=== PATIENT | female | born 1930 | race Caucasian/White ===

== ENCOUNTER 2021-11-22 17:55 | Inpatient (IN) ==
[2021-11-22] MEDS ORDERED: LORazepam 0.5 MG TABLET PO ONE (19:07)
[2021-11-22] MEDS ORDERED: IPRATROPIUM/ALBUTEROL 3 ML AMPUL.NEB NEB ONE (19:10)
[2021-11-22] MEDS ORDERED: LORazepam 1 MG TABLET PO ONE (19:10)
[2021-11-22 19:19] LABS: Hematocrit 32.8 % (34.1-44.9); Hemoglobin 12.2 g/dL (11.2-15.7); Mean Corpuscular HGB Conc 37.2 g/dL (31.0-36.0); Mean Platelet Volume 10.9 fL (7.4-10.4); Platelet Count 193 K/mcL (140-440); RBC 3.38 M/mcL (3.59-5.38); Red Cell Distribution Width 11.8 % (11.5-14.5); WBC 8.5 K/mcL (4.5-11.0)
[2021-11-22 19:29] LABS: ALT/SGPT 16 U/L (<40); AST/SGOT 29 U/L (<32); Albumin 3.6 gm/dL (3.2-5.2); Albumin/Globulin Ratio 1.2 (1.0-2.3); Alkaline Phosphatase 69 U/L (39-117); Bilirubin,Total 0.9 mg/dL (0.1-1.0); Blood Urea Nitrogen 10 mg/dL (8-23); Calcium 8.6 mg/dL (8.6-10.4); Carbon Dioxide 26 mmol/L (22-30); Chloride 85 mmol/L (96-108); Globulin 2.9 gm/dL (2.2-3.7); Glomerular Filtration Rate 77; Glucose 189 mg/dL (70-105)
[2021-11-22 19:45] LABS: Band Neutrophils % 11 % (0-10); Eosinophils % (Manual) 1 % (0-7); Lymphocytes % 15 % (15-49); Monocytes % (Manual) 7 % (1-12); Platelet Estimate NORMAL (Normal); RBC Morphology NORMAL (Normal); Segmented Neutrophils % 66 % (38-78)
--- NOTE | 2021-11-22 19:54 | Emergency Department Note ---
HPI <Belem Barboza PA-C - Last Filed: 11/22/21 20:51> General Chief complaint: Shortness of Breath/Dyspnea Stated complaint: SOB/cough x 1 week Time Seen by Provider: 11/22/21 18:17 Source: patient Mode of arrival: wheelchair History of Present Illness HPI Narrative: 89-year-old female presents for weakness and cough x6 days. Her niece is with her at the bedside and gives most of her story as she is quite anxious and not able to focus on my questioning. Apparently she started developing symptoms of cough on Monday and then over the course of a few days has become gradually weaker. She is normally very active and works in her garden and walks her dogs, but she has been unable to leave the house since last Monday. She complains of severe cough that is keeping her awake at night. She denies chest pain. She is having some mild shortness of breath. Oxygen saturations are low 90s here. She is not on inhalers. Previous imaging shows granulomatous disease on CT. no other significant medical history other than hypertension. Echocardiogram in 2019 shows normal LVEF and no hemodynamically significant disease. Related Data Home Medications Medication Instructions Recorded Confirmed aspirin 81 mg chewable tablet 81 mg PO DAILY 08/07/18 06/29/21 brimonidine 0.2 %-timolol 0.5 % 1 drp BOTH EYES Q12H 08/07/18 06/29/21 eye drops calcium carbonate 500 mg calcium 1,200 mg PO DAILY 08/07/18 06/29/21 (1,250 mg) tablet cholecalciferol (vitamin D3) 50 2,000 unit PO DAILY 08/07/18 06/29/21 mcg (2,000 unit) capsule latanoprost (PF) 0.005 % eye drops 7.5 ml OP DAILY 08/07/18 06/29/21 omega-3 fatty acids PO 01/21/21 06/29/21 ascorbic acid (vitamin C) 1 tab PO QDAY 06/29/21 06/29/21 Previous Rx's Medication Instructions Recorded nitroglycerin 0.4 mg sublingual 0.4 mg SUBLINGUAL Q5M PRN #30 tab 11/25/19 tablet denosumab 60 mg/mL subcutaneous 60 mg SUB-Q [id number] #1 ml 05/29/20 syringe (Prolia) amlodipine 10 mg tablet 10 mg PO QDAY #90 tab 03/19/21 Allergies Allergy/AdvReac Type Severity Reaction Status Date / Time Penicillins Allergy Intermediate Swelling Verified 11/22/21 17:57 of Lip/Tongue/Throat Review of Systems <Belem Barboza PA-C - Last Filed: 11/22/21 20:51> ROS ROS Narrative: Narrative: All systems ED: reviewed and negative except as stated. PFSH <Belem Barboza PA-C - Last Filed: 11/22/21 20:51> Narrative Patient History Narrative: Narrative: Medical/Surgical/Family History All Active Problems (Updated 11/22/21 @ 20:43 by Gabe Cortez MD) CAP (community acquired pneumonia) (Acute) Acute hypoxemic respiratory failure (Acute) Toxic metabolic encephalopathy (Acute) Acute hyponatremia (Acute) Weakness (Acute) Acute lower respiratory infection (Acute) Tetanus, diphtheria, and acellular pertussis (Tdap) vaccination declined (Acute 06/29/21) 23-polyvalent pneumococcal polysaccharide vaccine declined (Acute 06/29/21) COVID-19 vaccine series declined (Acute 06/29/21) Influenza vaccination declined (Acute 06/29/21) Osteopenia (Acute) Medicare annual wellness visit, subsequent (Acute) Osteoporosis (Chronic) High cholesterol (Chronic) Hypertension (Chronic) Skin cancer (Chronic) Medical History 23-polyvalent pneumococcal polysaccharide vaccine declined (06/29/21) COVID-19 vaccine series declined (06/29/21) High cholesterol Hypertension Influenza vaccination declined (06/29/21) Medicare annual wellness visit, subsequent Osteoporosis Skin cancer Tetanus, diphtheria, and acellular pertussis (Tdap) vaccination declined (06/29/21) Surgical History History of back surgery x 2 History of neck surgery Family History Family/Other Cancer Grandparent Father Heart attack Social History Smoking Status: Never smoker Alcohol Intake Frequency: does not drink Substance Use: does not use Exam <Belem Barboza PA-C - Last Filed: 11/22/21 20:51> Narrative Narrative: General: AOx3, extremely anxious and try to get out of bed, nontoxic appearing. HEENT: PERRL, EOMI, normocephalic. Moist mucous membranes. Normal facies and normal dentition. Chest: Symmetric, no pain to palpation Respiratory: No expiratory wheezes. She has subtle crackles in the left upper lobe. No respiratory distress. Unlabored breathing. Heart: Regular rate and rhythm, no murmurs/clicks/rubs. Abdomen: Non-tender, Non distended, normal bowel tones. No organomegaly. Extremities: Warm and well perfused. No edema. DP 2+ bilaterally. No venous stasis. Neuro: No focal deficits. Cranial nerves II-XII grossly normal. Moving all fours spontaneously Skin: Warm dry, no rashes or lesions, no cyanosis. Psych: Very anxious Heme/Lymph: No abnormal bruising Course <Belem Barboza PA-C - Last Filed: 11/22/21 20:51> Course Course Narrative: 89-year-old female presents with 6 days of weakness and cough Reevaluation(s) Reevaluation #1: Obtain basic labs, chest x-ray, UA, BNP, D-dimer Give 0.5 mg sublingual Ativan given her high anxiety Obtain COVID and influenza screens Reevaluation #2: Chest x-ray is without infiltrates or pulmonary edema COVID and influenza screens are negative BNP mildly elevated at 1930 D-dimer is negative adjusted for age Hyponatremia 123 Remaining labs are unremarkable without leukocytosis. Vital Signs Vital signs: Vital Signs Temperature 36.3 C 11/22/21 17:57 Pulse Rate 79 11/22/21 17:57 Respiratory Rate 24 H 11/22/21 17:57 Blood Pressure 171/51 11/22/21 17:57 Pulse Oximetry (%) 90 11/22/21 17:57 Temperature 35.8 C L 11/22/21 23:35 Pulse Rate 85 11/22/21 23:35 Respiratory Rate 24 H 11/22/21 23:35 Blood Pressure 163/72 11/22/21 23:35 Pulse Oximetry (%) 94 11/22/21 23:35 [facility] <Belem Barboza PA-C - Last Filed: 11/22/21 20:51> [facility] Narrative Medical decision making narrative: Hyponatremia Weakness Cough Given her sodium of 123 and ongoing weakness the plan will be to discuss admission with the hospitalist. I do not think she is appropriate to discharge home as she lives independently at home. Chest x-ray was without infiltrates and I have not started antibiotics at this time. Awaiting hospitalist for admission. Hospitalist has accepted the patient for observation admission and will be down to see the patient shortly. Lab Data Result diagrams: 11/22/21 18:31 11/22/21 18:31 Labs: Lab Results 11/22/21 11/22/21 11/22/21 Range/Units 18:31 18:31 18:31 WBC 8.5 (4.5-11.0) K/mcL RBC 3.38 L (3.59-5.38) M/mcL Hgb 12.2 (11.2-15.7) g/dL Hct 32.8 L (34.1-44.9) % MCV 97.0 (80.0-100.0) fL MCH 36.1 H (26.0-34.0) pg MCHC 37.2 H (31.0-36.0) g/dL RDW 11.8 (11.5-14.5) % Plt Count 193 (140-440) K/mcL MPV 10.9 H (7.4-10.4) fL Seg Neutrophils % 66 (38-78) % Band Neutrophils % 11 H (0-10) % Lymphocytes % 15 (15-49) % Monocytes % (Manual) 7 (1-12) % Eosinophils % (Manual) 1 (0-7) % Platelet Estimate Normal (Normal) RBC Morphology Normal (Normal) D-Dimer (0.27-0.50) ug/mL Sodium 123 L (133-145) mmol/L Potassium 4.0 (3.3-5.1) mmol/L Chloride 85 L (96-108) mmol/L Carbon Dioxide 26 (22-30) mmol/L Anion Gap 12.0 (8.0-16.0) BUN 10 (8-23) mg/dL Creatinine 0.7 (0.6-1.1) mg/dL GFR Calculation 77 Glucose 189 H (70-105) mg/dL Calcium 8.6 (8.6-10.4) mg/dL Total Bilirubin 0.9 (0.1-1.0) mg/dL AST 29 (<32) U/L ALT 16 (<40) U/L Alkaline Phosphatase 69 (39-117) U/L NT-Pro-B Natriuret Pep 1980.0 H (<450.0) pg/mL Total Protein 6.5 (5.9-8.4) gm/dL Albumin 3.6 (3.2-5.2) gm/dL Globulin 2.9 (2.2-3.7) gm/dL Albumin/Globulin Ratio 1.2 (1.0-2.3) / Range/Units 18:31 WBC (4.5-11.0) K/mcL RBC (3.59-5.38) M/mcL Hgb (11.2-15.7) g/dL Hct (34.1-44.9) % MCV (80.0-100.0) fL MCH (26.0-34.0) pg MCHC (31.0-36.0) g/dL RDW (11.5-14.5) % Plt Count (140-440) K/mcL MPV (7.4-10.4) fL Seg Neutrophils % (38-78) % Band Neutrophils % (0-10) % Lymphocytes % (15-49) % Monocytes % (Manual) (1-12) % Eosinophils % (Manual) (0-7) % Platelet Estimate (Normal) RBC Morphology (Normal) D-Dimer 0.89 H (0.27-0.50) ug/mL Sodium (133-145) mmol/L Potassium (3.3-5.1) mmol/L Chloride (96-108) mmol/L Carbon Dioxide (22-30) mmol/L Anion Gap (8.0-16.0) BUN (8-23) mg/dL Creatinine (0.6-1.1) mg/dL GFR Calculation Glucose (70-105) mg/dL Calcium (8.6-10.4) mg/dL Total Bilirubin (0.1-1.0) mg/dL AST (<32) U/L ALT (<40) U/L Alkaline Phosphatase (39-117) U/L NT-Pro-B Natriuret Pep (<450.0) pg/mL Total Protein (5.9-8.4) gm/dL Albumin (3.2-5.2) gm/dL Globulin (2.2-3.7) gm/dL Albumin/Globulin Ratio (1.0-2.3) ED POC Tests ED POC Tests: XIANG - Influenza A Negative XIANG - Influenza B Negative XIANG - SARS Antigen Negative Discharge Plan Patient/Caregiver Discharge Instructions Pt seen by [employer]ER ASSEMBLER/PA only: Yes Clinical Impression: Acute hyponatremia, Weakness, Acute lower respiratory infection Patient Disposition: Xfer As Outpt/Obs ([facility]) Condition: Fair Discharge Date/Time: 11/22/21 21:42
--- NOTE | 2021-11-22 20:44 | Internal Med History&Physical ---
HPI History of Present Illness Patient information: Note initiated : 11/22/21 at 8:40 pm Service Date, if different from initiated Date: [] Patient: Danielle Duncan a 89 y/o F admitted on for SOB/cough x 1 week. Chief Complaint: [SOB] Chief complaint: ALOC, weakness History of present illness: Ms. Duncan is a 89 year old F with a past medical history significant for hypertension, and glaucoma who presents to the hospital with worsening shortness of breath, and malaise. The patient was quite anxious on arrival, and coughing vigorously. She was found to be hypoxemic and placed on supplemental O2. She was given a dose of Ativan and she was quite sedated when I went to evaluate her. History was obtained secondhand from chart review and from the niece who was present at the bedside. She states that her aunt began to feel unwell last . They would call him to check and and she would state that she is feeling well. Today she decided to come in and check on her when she noticed that she was looking quite unwell. She decided to bring her to the ER for further management and evaluation. On arrival, she was tachypneic and very weak. The hospitalist service was asked admit the patient for further ma nagement evaluation of acute hypoxemic respiratory failure. Review of Systems ROS unobtainable: due to mental status [facility] PF[facility] All Active Problems (Updated 11/22/21 @ 20:43 by Gabe Cortez MD) CAP (community acquired pneumonia) (Acute) Acute hypoxemic respiratory failure (Acute) Toxic metabolic encephalopathy (Acute) Acute hyponatremia (Acute) Weakness (Acute) Acute lower respiratory infection (Acute) Tetanus, diphtheria, and acellular pertussis (Tdap) vaccination declined (Acute 06/29/21) 23-polyvalent pneumococcal polysaccharide vaccine declined (Acute 06/29/21) COVID-19 vaccine series declined (Acute 06/29/21) Influenza vaccination declined (Acute 06/29/21) Osteopenia (Acute) Medicare annual wellness visit, subsequent (Acute) Osteoporosis (Chronic) High cholesterol (Chronic) Hypertension (Chronic) Skin cancer (Chronic) Medical History 23-polyvalent pneumococcal polysaccharide vaccine declined (06/29/21) COVID-19 vaccine series declined (06/29/21) High cholesterol Hypertension Influenza vaccination declined (06/29/21) Medicare annual wellness visit, subsequent Osteoporosis Skin cancer Tetanus, diphtheria, and acellular pertussis (Tdap) vaccination declined (06/29/21) Surgical History History of back surgery x 2 History of neck surgery Family History Family/Other Cancer Grandparent Father Heart attack Social History marital status: smoking status: Never smoker alcohol intake frequency: does not drink substance use type: does not use MEDS/ALLERGIES Home Medications and Allergies Home Medications Medication Instructions Recorded Confirmed Type aspirin 81 mg chewable tablet 81 mg PO DAILY 08/07/18 06/29/21 History brimonidine 0.2 %-timolol 0.5 % 1 drp BOTH EYES Q12H 08/07/18 06/29/21 History eye drops calcium carbonate 500 mg calcium 1,200 mg PO DAILY 08/07/18 06/29/21 History (1,250 mg) tablet cholecalciferol (vitamin D3) 50 2,000 unit PO DAILY 08/07/18 06/29/21 History mcg (2,000 unit) capsule latanoprost (PF) 0.005 % eye drops 7.5 ml OP DAILY 08/07/18 06/29/21 History nitroglycerin 0.4 mg sublingual 0.4 mg SUBLINGUAL Q5M PRN #30 tab 11/25/19 06/29/21 Rx tablet denosumab 60 mg/mL subcutaneous 60 mg SUB-Q [id number] #1 ml 05/29/20 06/29/21 Rx syringe (Prolia) omega-3 fatty acids PO 01/21/21 06/29/21 History amlodipine 10 mg tablet 10 mg PO QDAY #90 tab 03/19/21 06/29/21 Rx ascorbic acid (vitamin C) 1 tab PO QDAY 06/29/21 06/29/21 History Allergies Allergy/AdvReac Type Severity Reaction Status Date / Time Penicillins Allergy Intermediate Swelling Verified 11/22/21 17:57 of Lip/Tongue/Throat EXAM Constitutional Vitals: Temp Pulse Resp BP Pulse Ox 97.3 F 63 28 H 148/55 94 11/22/21 17:57 11/22/21 20:23 11/22/21 20:23 11/22/21 20:02 11/22/21 20:23 General appearance: average body habitus Head Head exam: Present atraumatic, normal inspection and normocephalic Eye Eye exam: Present EOMI, normal appearance and PERRL; Absent conjunctival injection ENT ENT exam: Present mucous membranes dry and normal exam Neck Neck exam: Present full ROM; Absent lymphadenopathy Respiratory Respiratory exam: Present decreased breath sounds, CTAB, rhonchi and wheezes; Absent normal respiratory exam or respiratory distress Cardiovascular Cardiovascular exam: Present normal rate and rhythm and RRR; Absent JVD GI/Abdominal GI/Abdominal exam: Present normal bowel sounds and soft; Absent diminished bowel sounds, distended, guarding, mass, rebound or tenderness Neurological Exam Neurological exam: Present altered; Absent alert, CN II-XII intact or oriented X3 Psychiatric Psychiatric exam: Present normal affect and normal mood Skin Skin exam: Present intact and warm; Absent erythema, pallor, petechiae or rash DATA Data Completed and Pending Labs: Labs from last 24 hours 11/22/21 11/22/21 11/22/21 18:31 18:31 18:31 WBC RBC Hgb Hct MCV MCH MCHC RDW Plt Count MPV Seg Neutrophils % Band Neutrophils % Lymphocytes % Monocytes % (Manual) Eosinophils % (Manual) Platelet Estimate RBC Morphology D-Dimer 0.89 H Sodium 123 L Potassium 4.0 Chloride 85 L Carbon Dioxide 26 Anion Gap 12.0 BUN 10 Creatinine 0.7 GFR Calculation 77 Glucose 189 H Calcium 8.6 Total Bilirubin 0.9 AST 29 ALT 16 Alkaline Phosphatase 69 NT-Pro-B Natriuret Pep 1980.0 H Total Protein 6.5 Albumin 3.6 Globulin 2.9 Albumin/Globulin Ratio 1.2 11/22/21 18:31 WBC 8.5 RBC 3.38 L Hgb 12.2 Hct 32.8 L MCV 97.0 MCH 36.1 H MCHC 37.2 H RDW 11.8 Plt Count 193 MPV 10.9 H Seg Neutrophils % 66 Band Neutrophils % 11 H Lymphocytes % 15 Monocytes % (Manual) 7 Eosinophils % (Manual) 1 Platelet Estimate Normal RBC Morphology Normal D-Dimer Sodium Potassium Chloride Carbon Dioxide Anion Gap BUN Creatinine GFR Calculation Glucose Calcium Total Bilirubin AST ALT Alkaline Phosphatase NT-Pro-B Natriuret Pep Total Protein Albumin Globulin Albumin/Globulin Ratio A/P Assessment and plan (1) Acute hyponatremia: Status: Acute (2) Weakness: Status: Acute (3) Hypertension: Status: Chronic Qualifiers: Hypertension type: essential hypertension Qualified Code(s): I10 - Essential (primary) hypertension (4) High cholesterol: Status: Chronic (5) Toxic metabolic encephalopathy: Status: Acute (6) Acute hypoxemic respiratory failure: Status: Acute (7) CAP (community acquired pneumonia): Status: Acute Narrative A/P Narrative: The patient was found to be quite weak, debilitated, and short of breath on arrival. From my understanding, she is unvaccinated to COVID-19. There is no respiratory panel that was ordered, so this was ordered stat. We will also obtain CT chest. It is unclear if she is able to expectorate, and we will hold off on a sputum culture. She will be started on ceftriaxone, Zithromax, and duo nebs. She will be resuscitated with IV fluids for hypovolemic hyponatremia. The patient's home antihypertensives will be held. We will monitor her clinical status. Maintain an O2 sat of greater than 92% via supplemental O2. PT and OT eval once clinically stable. Time Spent With Patient Time: Total time spent is greater than 50% in coordination of care (as documented) at patient's floor/unit and/or counseling patient: Total time spent with greater than 50% in coordination of care (as documented) at patient's floor/unit and/or counseling patient:: 50 - 70 minutes
[2021-11-22] MEDS ORDERED: cefTRIAXone 1 GM in DEXTROSE 5% IN WATER 50 ML IV SCH (21:45)
[2021-11-22] MEDS ORDERED: ONDANSETRON 4 MG/2 ML VIAL IV PRN (21:45)
[2021-11-22] MEDS: 0.9 % SODIUM CHLORIDE 1,000 ML IV SCH (21:57)
[2021-11-22] MEDS: 0.9 % SODIUM CHLORIDE 10 ML SYRINGE IV SCH (21:57)
[2021-11-22] MEDS: cefTRIAXone 1 GM VIAL IV SCH (22:38)
[2021-11-22] MEDS: DOCUSATE SODIUM 100 MG CAPSULE PO SCH (22:40)
[2021-11-22] MEDS: SENNOSIDES 1 TABLET PO SCH (22:40)
[2021-11-22] MEDS: AZITHROMYCIN 250 MG in DEXTROSE 5% IN WATER 250 ML IV SCH (23:21)
[2021-11-23] MEDS: IPRATROPIUM/ALBUTEROL 3 ML AMPUL.NEB NEB SCH ×2 (00:07→07:54)
--- NOTE | 2021-11-23 04:28 | XRay Report ---
CLINICAL INFORMATION: Dyspnea COMPARISON: None. TECHNIQUE: PA and Lateral views FINDINGS: The heart size, mediastinum and pulmonary vessels are unremarkable. Lung volumes are elevated and there is wall thickening of the bronchi suggesting bronchitis or asthma. Possible developing infiltrates in the bases appreciated. IMPRESSION: Bronchitis or asthma. Possible developing bibasilar infiltrates Interpreted and Authenticated by: Amarjit Finley 11/23/21
[2021-11-23] MEDS: 0.9 % SODIUM CHLORIDE 10 ML SYRINGE IV SCH ×3 (04:47→22:00)
[2021-11-23 06:34] LABS: Basophils # (Auto) 0.03 K/mcL (0.00-0.30); Basophils % (Auto) 0.4 % (0.0-2.0); Eosinophils # (Auto) 0.17 K/mcL (0.00-0.70); Eosinophils % (Auto) 2.5 % (0.0-7.0); Hematocrit 31.7 % (34.1-44.9); Hemoglobin 11.2 g/dL (11.2-15.7); Lymphocytes # (Auto) 1.41 K/mcL (1.50-4.80); Lymphocytes % (Auto) 20.6 % (15.5-49.0); Mean Cell Volume 99.1 fL (80.0-100.0); Mean Corpuscular HGB Conc 35.3 g/dL (31.0-36.0); Mean Platelet Volume 11.4 fL (7.4-10.4); Monocytes # (Auto) 0.77 K/mcL (0.10-0.90); Monocytes % (Auto) 11.2 % (1.0-12.0); Neutrophils % (Auto) 65.3 % (38.0-78.0); Platelet Count 157 K/mcL (140-440); Red Cell Distribution Width 11.8 % (11.5-14.5); WBC 6.9 K/mcL (4.5-11.0)
--- NOTE | 2021-11-23 06:42 | Internal Med Progress Note ---
SUBJECTIVE Subjective Patient information: Note initiated : 11/23/21 at 6:40 am Service Date, if different from initiated Date: [as above] Patient: Danielle Duncan 89 y/o F admitted on 11/22/21 for SOB/cough x 1 week. Chief Complaint: [SOB, weakness] Principal diagnosis: Dyspnea, weakness Interval history: The patient was resting comfortably in bed and had no active complaints or concerns. Constitutional Vitals: Vital Signs Temp Pulse Resp BP Pulse Ox 97.9 F 69 20 137/53 94 11/23/21 03:38 11/23/21 03:38 11/23/21 03:38 11/23/21 03:38 11/23/21 04:44 Period Temp Pulse Resp BP Sys/Lindsey Pulse Ox Last 24 Hr 96.4 F-97.9 F 63-92 20-39 101-171/51-121 90-97 Intake and Output 11/22/21 11/23/21 11/23/21 21:59 05:59 13:59 Intake Total 350 Balance 350 Weight 58.014 kg Intake & Output: Intake & Output 11/22/21 11/23/21 11/23/21 21:59 05:59 13:59 Intake Total 350 Balance 350 Weight 58.014 kg Intake: IV 250 Zithromax 250 mg In Dextrose 5% 250 in Water 250 ml @ 250 mls/hr IV Q24H [facility] Rx#:[id number] Oral 100 Head Head exam: Present atraumatic and normal inspection Eye Eye exam: Present normal appearance ENT ENT exam: Present mucous membranes moist, normal exam and normal external ear exam Neck Neck exam: Present normal inspection Respiratory Respiratory exam: Present decreased breath sounds, rhonchi and wheezes; Absent respiratory distress Cardiovascular Cardiovascular exam: Present normal rate and rhythm GI/Abdominal GI/Abdominal exam: Present normal bowel sounds Back Exam Back exam: Present normal inspection Neurological Exam Neurological exam: Present alert Skin Skin exam: Present intact and warm OBJ DATA Labs CBC & Chem 7: 11/23/21 05:18 11/22/21 18:31 Labs: Abnormal Lab Results 11/23/21 11/22/21 11/22/21 05:18 18:31 18:31 RBC 3.20 L Hct 31.7 L MCH 35.0 H MCHC MPV 11.4 H Lymph # (Auto) 1.41 L Band Neutrophils % D-Dimer 0.89 H Sodium Chloride Glucose NT-Pro-B Natriuret Pep 1980.0 H 11/22/21 11/22/21 18:31 18:31 RBC 3.38 L Hct 32.8 L MCH 36.1 H MCHC 37.2 H MPV 10.9 H Lymph # (Auto) Band Neutrophils % 11 H D-Dimer Sodium 123 L Chloride 85 L Glucose 189 H NT-Pro-B Natriuret Pep Meds: Medications Acetaminophen (Acetaminophen 325 Mg Tablet) 650 mg PO Q6HP PRN; Protocol PRN Reason: Per Pain Protocol/Fever > 101 Albuterol/Ipratropium (Ipratropium/Albuterol 3 Ml Ampul.Neb) 3 ml NEB Q6HRT [facility] Last Admin: 11/23/21 00:07 Dose: 3 ml Documented by: Ceftriaxone Sodium (Ceftriaxone 1 Gm Vial) 1 gm IV Q24H [facility] Last Admin: 11/22/21 22:38 Dose: 1 gm Documented by: Docusate Sodium (Docusate Sodium 100 Mg Capsule) 100 mg PO BID [facility] Last Admin: 11/22/21 22:40 Dose: Not Given Documented by: Enoxaparin Sodium (Enoxaparin 40 Mg/0.4 Ml Syringe) 40 mg SQ DAILY [facility] Sodium Chloride (Sodium Chloride 0.9%) 1,000 mls @ 100 mls/hr IV .Q10H [facility] Last Admin: 11/22/21 21:57 Dose: 100 mls/hr Documented by: Azithromycin 250 mg/ Dextrose 250 mls @ 250 mls/hr IV Q24H [facility]; Protocol Stop: 11/24/21 22:44 Last Infusion: 11/23/21 00:54 Dose: Infused Documented by: Ondansetron HCl (Ondansetron 4 Mg/2 Ml Vial) 4 mg IV Q6HP PRN PRN Reason: Nausea And Vomiting Senna (Sennosides 1 Tablet) 2 tab PO HS [facility] Last Admin: 11/22/21 22:40 Dose: Not Given Documented by: Sodium Chloride (0.9 % Sodium Chloride 10 Ml Syringe) 10 ml IV Q8 [facility] Last Admin: 11/23/21 04:47 Dose: Not Given Documented by: A/P Assessment and plan (1) Acute hyponatremia: Status: Acute (2) Weakness: Status: Acute (3) Hypertension: Status: Chronic Qualifiers: Hypertension type: essential hypertension Qualified Code(s): I10 - Essential (primary) hypertension (4) High cholesterol: Status: Chronic (5) Toxic metabolic encephalopathy: Status: Acute (6) Acute hypoxemic respiratory failure: Status: Acute (7) CAP (community acquired pneumonia): Status: Acute Narrative A/P Narrative: The patient was found to be quite weak, debilitated, and short of breath on arrival. From my understanding, she is unvaccinated to COVID-19. There is no respiratory panel that was ordered, so this was ordered stat. We will also obtain CT chest. It is unclear if she is able to expectorate, and we will hold off on a sputum culture. She will be started on ceftriaxone, Zithromax, and duo nebs. She will be resuscitated with IV fluids for hypovolemic hyponatremia. The patient's home antihypertensives will be held. We will monitor her clinical status. Maintain an O2 sat of greater than 92% via supplemental O2. PT and OT eval once clinically stable. 11/23: The patient's respiratory viral panel is negative. SARS-CoV2 is pending. Continue tx for CAP as above. Time Spent With Patient Time: Total time spent is greater than 50% in coordination of care (as documented) at patient's floor/unit and/or counseling patient: Total time spent with greater than 50% in coordination of care (as documented) at patient's floor/unit and/or counseling patient:: 25 - 35 minutes QUALITY Stroke Symptom Onset Unknown: No VTE Deep Vein Thrombosis/Pulmonary Embolism Present on Admission: No
[2021-11-23 07:03] LABS: Blood Urea Nitrogen 9 mg/dL (8-23); Calcium 7.7 mg/dL (8.6-10.4); Carbon Dioxide 24 mmol/L (22-30); Chloride 87 mmol/L (96-108); Glomerular Filtration Rate 81; Glucose 115 mg/dL (70-105)
[2021-11-23] MEDS: DOCUSATE SODIUM 100 MG CAPSULE PO SCH ×2 (08:14→21:12)
[2021-11-23] MEDS: ENOXAPARIN 40 MG/0.4 ML SYRINGE SQ SCH (08:14)
[2021-11-23] MEDS: ACETAMINOPHEN 325 MG TABLET PO PRN ×2 (08:15→17:35)
[2021-11-23] MEDS: 0.9 % SODIUM CHLORIDE 1,000 ML IV SCH (08:48)
[2021-11-23] MEDS: cefTRIAXone 1 GM VIAL IV SCH (08:48)
--- NOTE | 2021-11-23 10:26 | Cat Scan Report ---
CLINICAL INFORMATION: Shortness of breath and cough COMPARISON: Chest CT 08/01/2011 TECHNIQUE: 0.625 mm axial slices were obtained from the lung apices through the bases without intravenous contrast. 2.5 mm Sagittal, coronal and axial reformatted images were processed and reviewed at bone, lung and soft tissue windows. 7 mm axial MIP images were also reconstructed to optimize pulmonary nodule detection.The exam was performed using radiation dose optimization techniques including, but not limited to, automated exposure control, adjustment of the mA and/or kV according to patient size and use of iterative reconstruction technique. FINDINGS: Pulmonary parenchymal windows show moderate mixed interstitial/alveolar infiltrate within the right lower lobe and smaller patchy mixed infiltrates in the posterior left lower lobe, right middle lobe, lingula and posterior right upper lobe. Lung volumes are mildly elevated is mild wall thickening the bronchi compatible with chronic bronchitis. There are small bilateral pleural effusions Mediastinal windows of a moderate hiatal hernia which is unchanged. The heart is normal in size with minimal calcific plaque scattered in the coronary arteries. The noncontrast thoracic aorta is normal diameter with calcific plaque in the descending segment. The noncontrast pulmonary arteries are normal diameter. 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 Mildly enlarged lymph nodes in the lower mediastinum and the hilar regions are most compatible with benign reactive adenopathy due to inflammation. 2.1 cm low-attenuation lesion in the left thyroid is likely an adenoma. There is a 9 mm nodule posterior to the inferior lobe of the left thyroid which could represent a parathyroid adenoma. Bone windows show no osseous abnormality. Superior abdominal images shows two adjacent cysts in the right hepatic lobe each approximately 3 cm which are stable since the remote study. IMPRESSION: 1. Moderate patchy infiltrate in the posterior right lower lobe with smaller patchy infiltrates in the posterior left lower lobe, lingula, right middle lobe and posterior upper lobes. Findings suspicious for aspiration pneumonia. 2. Moderate hiatal hernia 3. 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 21 mm low-attenuation lesion inferior left thyroid is likely an adenoma. 5. Two adjacent simple cysts in the right hepatic lobe image 3 cm. Interpreted and Authenticated by: Amarjit Finley 11/23/21
[2021-11-23] MEDS ORDERED: IPRATROPIUM/ALBUTEROL 3 ML AMPUL.NEB NEB PRN (11:51)
[2021-11-23] MEDS: guaiFENesin/CODEINE 10 ML UDC PO PRN (11:56)
[2021-11-23] MEDS: AZITHROMYCIN 250 MG in DEXTROSE 5% IN WATER 250 ML IV SCH (12:55)
[2021-11-23] MEDS ORDERED: NITROGLYCERIN 0.4 MG TAB.SUBL SL PRN (13:50)
[2021-11-23] MEDS ORDERED: FUROSEMIDE 20 MG/2 ML VIAL IV SCH (13:55)
--- NOTE | 2021-11-23 13:55 | Internal Med Progress Note ---
SUBJECTIVE Subjective Patient information: Note initiated : 11/23/21 at 1:48 pm Service Date, if different from initiated Date: [] Patient: Danielle Duncan 89 y/o F admitted on 11/22/21 for SOB/cough x 1 week. Chief Complaint: [] Principal diagnosis: Dyspnea, weakness Interval history: Ms. Duncan is a 89 year old F with a past medical history significant for hypertension, and glaucoma who presents to the hospital with worsening shortness of breath, and malaise. The patient was quite anxious on arrival, and coughing vigorously. She was found to be hypoxemic and placed on supplemental O2. She was given a dose of Ativan and she was quite sedated when I went to evaluate her. History was obtained secondhand from chart review and from the niece who was present at the bedside. She states that her aunt began to feel unwell last . They would call him to check and and she would state that she is feeling well. Today she decided to come in and check on her when she noticed that she was looking quite unwell. She decided to bring her to the ER for further management and evaluation. On arrival, she was tachypneic and very weak. The hospitalist service was asked admit the patient for further managemen t evaluation of acute hypoxemic respiratory failure. 11/23 The patient was resting comfortably in bed and had no active complaints or concerns. The patient's respiratory viral panel is negative. SARS-CoV2 is pending. Continue tx for CAP as above. 11/24 Constitutional Vitals: Vital Signs Temp Pulse Resp BP Pulse Ox 98.9 F 62 20 128/58 94 11/23/21 11:36 11/23/21 11:36 11/23/21 11:36 11/23/21 11:36 11/23/21 11:36 Period Temp Pulse Resp BP Sys/Lindsey Pulse Ox Last 24 Hr 96.4 F-98.9 F 62-92 16-39 101-171/48-121 90-97 Intake and Output 11/22/21 11/23/21 11/23/21 21:59 05:59 13:59 Intake Total 350 1000 Balance 350 1000 Weight 58.014 kg Intake & Output: Intake & Output 11/22/21 11/23/21 11/23/21 21:59 05:59 13:59 Intake Total 350 1000 Balance 350 1000 Weight 58.014 kg Intake: IV 250 1000 Sodium Chloride 0.9% 1,000 ml @ 1000 100 mls/hr IV .Q10H [facility] Rx#: [id number] Zithromax 250 mg In Dextrose 5% 250 in Water 250 ml @ 250 mls/hr IV Q24H [facility] Rx#:[id number] Oral 100 Exam: General: Alert, Awake, No acute Distress Eyes/N/T: EOMI, Head/Neck: neck supple, CV: RRR, No murmurs, Pulm: Clear b/l, no wheezing/rhonchi/rales Abd: soft, nontender, +BS x4 Ext: no clubbing/cyanosis/edema Neuro: Alert, no focal deficits, moves all extremities, Skin: warm/dry OBJ DATA Labs CBC & Chem 7: 11/23/21 05:18 11/23/21 05:18 Labs: Abnormal Lab Results 11/23/21 11/23/21 11/22/21 05:18 05:18 18:31 RBC 3.20 L Hct 31.7 L MCH 35.0 H MCHC MPV 11.4 H Lymph # (Auto) 1.41 L Band Neutrophils % D-Dimer 0.89 H Sodium 121 L Chloride 87 L Glucose 115 H Calcium 7.7 L NT-Pro-B Natriuret Pep 11/22/21 11/22/21 11/22/21 18:31 18:31 18:31 RBC 3.38 L Hct 32.8 L MCH 36.1 H MCHC 37.2 H MPV 10.9 H Lymph # (Auto) Band Neutrophils % 11 H D-Dimer Sodium 123 L Chloride 85 L Glucose 189 H Calcium NT-Pro-B Natriuret Pep 1980.0 H Meds: Medications Acetaminophen (Acetaminophen 325 Mg Tablet) 650 mg PO Q6HP PRN; Protocol PRN Reason: Per Pain Protocol/Fever > 101 Last Admin: 11/23/21 08:15 Dose: 650 mg Documented by: Albuterol/Ipratropium (Ipratropium/Albuterol 3 Ml Ampul.Neb) 3 ml NEB Q6HP PRN PRN Reason: Shortness Of Breath Ceftriaxone Sodium (Ceftriaxone 1 Gm Vial) 1 gm IV Q24H [facility] Last Admin: 11/23/21 08:48 Dose: 1 gm Documented by: Docusate Sodium (Docusate Sodium 100 Mg Capsule) 100 mg PO BID [facility] Last Admin: 11/23/21 08:14 Dose: 100 mg Documented by: Enoxaparin Sodium (Enoxaparin 40 Mg/0.4 Ml Syringe) 40 mg SQ DAILY [facility] Last Admin: 11/23/21 08:14 Dose: 40 mg Documented by: Guaifenesin/Codeine Phosphate (Guaifenesin/Codeine 10 Ml Udc) 5 ml PO Q4HP PRN PRN Reason: Cough Last Admin: 11/23/21 11:56 Dose: 5 ml Documented by: Sodium Chloride (Sodium Chloride 0.9%) 1,000 mls @ 100 mls/hr IV .Q10H [facility] Last Admin: 11/23/21 08:48 Dose: 100 mls/hr Documented by: Azithromycin 250 mg/ Dextrose 250 mls @ 250 mls/hr IV Q24H [facility]; Protocol Stop: 11/24/21 22:44 Last Admin: 11/23/21 12:55 Dose: 250 mls/hr Documented by: Ondansetron HCl (Ondansetron 4 Mg/2 Ml Vial) 4 mg IV Q6HP PRN PRN Reason: Nausea And Vomiting Senna (Sennosides 1 Tablet) 2 tab PO HS [facility] Last Admin: 11/22/21 22:40 Dose: Not Given Documented by: Sodium Chloride (0.9 % Sodium Chloride 10 Ml Syringe) 10 ml IV Q8 [facility] Last Admin: 11/23/21 12:56 Dose: Not Given Documented by: A/P Narrative A/P Narrative: A: *PNA. ?aspiration: *Metabolic encephalopathy: *Acute hypoxemic respiratory failure: -on 2L NC *Generalized weakness: *Hyponatremia: *HTN: * P: -Antibiotics -Pending COVID -wean O2 -follow-up sodium -urine studies -Continue home Norvasc -ST eval - -PT/OT -ppx: Lovenox Time Spent With Patient Time: Total time spent is greater than 50% in coordination of care (as documented) at patient's floor/unit and/or counseling patient: QUALITY Stroke Symptom Onset Unknown: No VTE Deep Vein Thrombosis/Pulmonary Embolism Present on Admission: No
[2021-11-23] MEDS: TIMOLOL BOTH EYES SCH (14:20)
[2021-11-23] MEDS: BRIMONIDINE BOTH EYES SCH (14:20)
[2021-11-23 14:39] LABS: Thyroid Stimulating Hormone 2.92 uIU/mL (0.27-5.01); Uric Acid 3.5 mg/dL (2.5-8.0)
[2021-11-23 15:45] LABS: Sodium, Urine Random 51 mmol/L
[2021-11-23 16:06] LABS: Osmolality,Urine 364 mOSM/kg (80-1000)
[2021-11-23] MEDS: SODIUM CHLORIDE 1 GM TABLET PO SCH ×2 (17:35→21:12)
[2021-11-23] MEDS: SENNOSIDES 1 TABLET PO SCH (21:12)
[2021-11-24] MEDS: TIMOLOL BOTH EYES SCH ×2 (03:08→19:19)
[2021-11-24] MEDS: BRIMONIDINE BOTH EYES SCH ×2 (03:08→19:19)
[2021-11-24] MEDS: 0.9 % SODIUM CHLORIDE 10 ML SYRINGE IV SCH ×3 (05:39→21:55)
[2021-11-24] MEDS: guaiFENesin/CODEINE 10 ML UDC PO PRN ×2 (08:06→19:39)
[2021-11-24] MEDS: DOCUSATE SODIUM 100 MG CAPSULE PO SCH ×2 (08:06→20:42)
[2021-11-24] MEDS: SODIUM CHLORIDE 1 GM TABLET PO SCH (08:06)
[2021-11-24] MEDS: amLODIPine 10 MG TABLET PO SCH (08:06)
[2021-11-24] MEDS: ENOXAPARIN 40 MG/0.4 ML SYRINGE SQ SCH (08:06)
[2021-11-24] MEDS: ASPIRIN 81 MG TAB.CHEW PO SCH (08:06)
--- NOTE | 2021-11-24 08:43 | Internal Med Progress Note ---
SUBJECTIVE Subjective Patient information: Note initiated : 11/24/21 at 8:40 am Service Date, if different from initiated Date: [] Patient: Danielle Duncan 89 y/o F admitted on 11/22/21 for SOB/cough x 1 week. Chief Complaint: [] Principal diagnosis: Dyspnea, weakness Interval history: Ms. Duncan is a 89 year old F with a past medical history significant for hypertension, and glaucoma who presents to the hospital with worsening shortness of breath, and malaise. The patient was quite anxious on arrival, and coughing vigorously. She was found to be hypoxemic and placed on supplemental O2. She was given a dose of Ativan and she was quite sedated when I went to evaluate her. History was obtained secondhand from chart review and from the niece who was present at the bedside. She states that her aunt began to feel unwell last . They would call him to check and and she would state that she is feeling well. Today she decided to come in and check on her when she noticed that she was looking quite unwell. She decided to bring her to the ER for further management and evaluation. On arrival, she was tachypneic and very weak. The hospitalist service was asked admit the patient for further managemen t evaluation of acute hypoxemic respiratory failure. 11/23 The patient was resting comfortably in bed and had no active complaints or concerns. The patient's respiratory viral panel is negative. SARS-CoV2 is pending. Continue tx for CAP as above. 11/24 Patient does occasionally admit to food going down the wrong pipe. Patient does have cough and shortness of breath with slow improvement. Patient getting a barium swallow with speech today. Awaiting chemistry for follow-up labs especially sodium. Review of Systems: denies headache/fever/chills/nausea/vomiting/chest or abdominal pain/diarrhea. Otherwise see above. Constitutional Vitals: Vital Signs Temp Pulse Resp BP Pulse Ox 97.7 F 78 17 144/54 95 11/24/21 07:20 11/24/21 07:20 11/24/21 07:20 11/24/21 07:20 11/24/21 08:00 Period Temp Pulse Resp BP Sys/Lindsey Pulse Ox Last 24 Hr 97.6 F-99.1 F 62-84 15-24 128-155/54-70 92-96 Intake and Output 11/23/21 11/24/21 11/24/21 21:59 05:59 13:59 Intake Total 1960 100 Output Total 800 1600 Balance 1160 -1500 Weight 58.559 kg Intake & Output: Intake & Output 11/23/21 11/24/21 11/24/21 21:59 05:59 13:59 Intake Total 1960 100 Output Total 800 1600 Balance 1160 -1500 Weight 58.559 kg Intake: IV 1250 Sodium Chloride 0.9% 1,000 ml @ 1000 100 mls/hr IV .Q10H [facility] Rx#: [id number] Zithromax 250 mg In Dextrose 5% 250 in Water 250 ml @ 250 mls/hr IV Q24H [facility] Rx#:[id number] Oral 710 100 Output: Void Amount 800 1600 Other: Meal Dinner Percent of Meal Consumed 75% Feeding Ability Independent Urine Appearance Clear Clear Urine Color Bright Yellow Bright Yellow Urine Odor Strong Exam: General: Alert, Awake, No acute Distress Eyes/N/T: EOMI, Head/Neck: neck supple, CV: RRR, No murmurs, Pulm: mild rhonchi b/l, no wheezing Abd: soft, nontender, +BS x4 Ext: no clubbing/cyanosis/edema Neuro: Alert, no focal deficits, moves all extremities, Skin: warm/dry OBJ DATA Labs CBC & Chem 7: 11/23/21 05:18 11/23/21 05:18 Labs: Abnormal Lab Results 11/23/21 11/23/21 11/23/21 05:18 05:18 05:18 RBC Hct MCH MCHC MPV Lymph # (Auto) Band Neutrophils % D-Dimer Sodium 121 L Chloride 87 L Glucose 115 H Osmolality 257 L Calcium 7.7 L NT-Pro-B Natriuret Pep Procalcitonin 0.13 H 11/23/21 11/22/21 11/22/21 05:18 18:31 18:31 RBC 3.20 L Hct 31.7 L MCH 35.0 H MCHC MPV 11.4 H Lymph # (Auto) 1.41 L Band Neutrophils % D-Dimer 0.89 H Sodium Chloride Glucose Osmolality Calcium NT-Pro-B Natriuret Pep 1980.0 H Procalcitonin 11/22/21 11/22/21 18:31 18:31 RBC 3.38 L Hct 32.8 L MCH 36.1 H MCHC 37.2 H MPV 10.9 H Lymph # (Auto) Band Neutrophils % 11 H D-Dimer Sodium 123 L Chloride 85 L Glucose 189 H Osmolality Calcium NT-Pro-B Natriuret Pep Procalcitonin Meds: Medications Acetaminophen (Acetaminophen 325 Mg Tablet) 650 mg PO Q6HP PRN; Protocol PRN Reason: Per Pain Protocol/Fever > 101 Last Admin: 11/23/21 17:35 Dose: 650 mg Documented by: Albuterol/Ipratropium (Ipratropium/Albuterol 3 Ml Ampul.Neb) 3 ml NEB Q6HP PRN PRN Reason: Shortness Of Breath Amlodipine Besylate (Amlodipine 10 Mg Tablet) 10 mg PO QDAY [facility] Last Admin: 11/24/21 08:06 Dose: 10 mg Documented by: Aspirin (Aspirin 81 Mg Tab.Chew) 81 mg PO DAILY [facility] Last Admin: 11/24/21 08:06 Dose: 81 mg Documented by: Ceftriaxone Sodium (Ceftriaxone 1 Gm Vial) 1 gm IV Q24H [facility] Last Admin: 11/23/21 08:48 Dose: 1 gm Documented by: Docusate Sodium (Docusate Sodium 100 Mg Capsule) 100 mg PO BID [facility] Last Admin: 11/24/21 08:06 Dose: 100 mg Documented by: Enoxaparin Sodium (Enoxaparin 40 Mg/0.4 Ml Syringe) 40 mg SQ DAILY [facility] Last Admin: 11/24/21 08:06 Dose: 40 mg Documented by: Guaifenesin/Codeine Phosphate (Guaifenesin/Codeine 10 Ml Udc) 5 ml PO Q4HP PRN PRN Reason: Cough Last Admin: 11/24/21 08:06 Dose: 5 ml Documented by: Azithromycin 250 mg/ Dextrose 250 mls @ 250 mls/hr IV Q24H [facility]; Protocol Stop: 11/24/21 22:44 Last Infusion: 11/23/21 14:05 Dose: Infused Documented by: Nitroglycerin (Nitroglycerin 0.4 Mg Tab.Subl) 0.4 mg SL Q5M PRN PRN Reason: chest pain Ondansetron HCl (Ondansetron 4 Mg/2 Ml Vial) 4 mg IV Q6HP PRN PRN Reason: Nausea And Vomiting Brimonidine-Timolol (5 Ml Drops) 1 dose BOTH EYES Q12H [facility] Last Admin: 11/24/21 03:08 Dose: 1 dose Documented by: Latanoprost (Pf) 7.5 (Ml Drops) 1 dose BOTH EYES [facility] Senna (Sennosides 1 Tablet) 2 tab PO HS [facility] Last Admin: 11/23/21 21:12 Dose: 2 tab Documented by: Sodium Chloride (0.9 % Sodium Chloride 10 Ml Syringe) 10 ml IV Q8 [facility] Last Admin: 11/24/21 05:39 Dose: 10 ml Documented by: Sodium Chloride (Sodium Chloride 1 Gm Tablet) 1 gm PO TID [facility] Stop: 11/24/21 09:01 Last Admin: 11/24/21 08:06 Dose: 1 gm Documented by: A/P Narrative A/P Narrative: A: *PNA, suspected Aspiration: -covid neg *Metabolic encephalopathy: *Acute hypoxemic respiratory failure: -on 1-2L NC *Generalized weakness: *Hyponatremia: *HTN: P: -Antibiotics -wean O2 -follow-up sodium -Continue home Norvasc/ASA -ST eval with Barium study -PT/OT -ppx: Lovenox Time Spent With Patient Time: Total time spent is greater than 50% in coordination of care (as documented) at patient's floor/unit and/or counseling patient: Total time spent with greater than 50% in coordination of care (as documented) at patient's floor/unit and/or counseling patient:: 25 - 35 minutes QUALITY Stroke Symptom Onset Unknown: No VTE Deep Vein Thrombosis/Pulmonary Embolism Present on Admission: No
[2021-11-24] MEDS: cefTRIAXone 1 GM VIAL IV SCH (08:58)
[2021-11-24 10:01] LABS: ALT/SGPT 17 U/L (<40); AST/SGOT 21 U/L (<32); Albumin 3.1 gm/dL (3.2-5.2); Albumin/Globulin Ratio 0.9 (1.0-2.3); Alkaline Phosphatase 76 U/L (39-117); Bilirubin,Direct < 0.2 mg/dL (0-0.3); Bilirubin,Total 0.4 mg/dL (0.1-1.0); Blood Urea Nitrogen 9 mg/dL (8-23); Calcium 8.4 mg/dL (8.6-10.4); Carbon Dioxide 25 mmol/L (22-30); Chloride 99 mmol/L (96-108); Globulin 3.4 gm/dL (2.2-3.7); Glomerular Filtration Rate 77; Glucose 147 mg/dL (70-105); Lactate Dehydrogenase 240 U/L (135-225); Phosphorous 2.3 mg/dL (2.5-4.5); Triglycerides 80 mg/dL (<150); Uric Acid 4.3 mg/dL (2.5-8.0)
[2021-11-24] MEDS: AZITHROMYCIN 250 MG in DEXTROSE 5% IN WATER 250 ML IV SCH (12:53)
--- NOTE | 2021-11-24 15:50 | XRay Report ---
CLINICAL INFORMATION: Possible aspiration COMPARISON: None. TECHNIQUE: Exam was performed in conjunction with speech pathology. Thin quality barium was ingested under fluoroscopic observation multiple films were obtained. FINDINGS: Tongue elevation and palate depression are normal with transfer of the barium bolus from the oral cavity into the oropharynx. Nasopharyngeus closes normally-no reflux. Pharyngeal stripping, epiglottis and vocal cord closure and cricopharyngeal opening are all normal. No evidence of aspiration. Initiation of primary peristaltic wave also normal. No lesions. IMPRESSION: Swallowing function Interpreted and Authenticated by: Amarjit Finley 11/24/21
[2021-11-24] MEDS: ACETAMINOPHEN 325 MG TABLET PO PRN (19:38)
[2021-11-24] MEDS: SENNOSIDES 1 TABLET PO SCH (20:42)
[2021-11-24] MEDS ORDERED: LATANOPROST BOTH EYES SCH (21:00)
[2021-11-25] MEDS: guaiFENesin/CODEINE 10 ML UDC PO PRN (05:27)
[2021-11-25] MEDS: 0.9 % SODIUM CHLORIDE 10 ML SYRINGE IV SCH ×2 (05:28→13:49)
[2021-11-25 07:38] LABS: ALT/SGPT 13 U/L (<40); AST/SGOT 15 U/L (<32); Albumin 2.7 gm/dL (3.2-5.2); Alkaline Phosphatase 82 U/L (39-117); Bilirubin,Direct < 0.2 mg/dL (0-0.3); Bilirubin,Total 0.2 mg/dL (0.1-1.0); Blood Urea Nitrogen 16 mg/dL (8-23); Calcium 8.5 mg/dL (8.6-10.4); Carbon Dioxide 28 mmol/L (22-30); Chloride 98 mmol/L (96-108); Globulin 2.8 gm/dL (2.2-3.7); Glomerular Filtration Rate 65; Glucose 111 mg/dL (70-105); Lactate Dehydrogenase 264 U/L (135-225); Triglycerides 59 mg/dL (<150); Uric Acid 4.6 mg/dL (2.5-8.0)
--- NOTE | 2021-11-25 08:25 | Internal Med Progress Note ---
SUBJECTIVE Subjective Patient information: Note initiated : 11/25/21 at 8:24 am Service Date, if different from initiated Date: [] Patient: Danielle Duncan 89 y/o F admitted on 11/22/21 for SOB/cough x 1 week. Chief Complaint: [] Principal diagnosis: Dyspnea, weakness Interval history: Ms. Duncan is a 89 year old F with a past medical history significant for hypertension, and glaucoma who presents to the hospital with worsening shortness of breath, and malaise. The patient was quite anxious on arrival, and coughing vigorously. She was found to be hypoxemic and placed on supplemental O2. She was given a dose of Ativan and she was quite sedated when I went to evaluate her. History was obtained secondhand from chart review and from the niece who was present at the bedside. She states that her aunt began to feel unwell last . They would call him to check and and she would state that she is feeling well. Today she decided to come in and check on her when she noticed that she was looking quite unwell. She decided to bring her to the ER for further management and evaluation. On arrival, she was tachypneic and very weak. The hospitalist service was asked admit the patient for further managemen t evaluation of acute hypoxemic respiratory failure. 11/23 The patient was resting comfortably in bed and had no active complaints or concerns. The patient's respiratory viral panel is negative. SARS-CoV2 is pending. Continue tx for CAP as above. 11/24 Patient does occasionally admit to food going down the wrong pipe. Patient does have cough and shortness of breath with slow improvement. Patient getting a barium swallow with speech today. Awaiting chemistry for follow-up labs especially sodium. Review of Systems: denies headache/fever/chills/nausea/vomiting/chest or abdominal pain/diarrhea. Otherwise see above. Constitutional Vitals: Vital Signs Temp Pulse Resp BP Pulse Ox 96.8 F L 74 22 185/76 92 11/25/21 07:39 11/25/21 07:39 11/25/21 07:39 11/25/21 07:39 11/25/21 07:39 Period Temp Pulse Resp BP Sys/Lindsey Pulse Ox Last 24 Hr 96.8 F-98.1 F 74-95 17-24 126-185/50-76 88-95 Intake and Output 11/24/21 11/25/21 11/25/21 21:59 05:59 13:59 Intake Total 580 Output Total 150 450 Balance -150 130 Weight 57.833 kg Intake & Output: Intake & Output 11/24/21 11/25/21 11/25/21 21:59 05:59 13:59 Intake Total 580 Output Total 150 450 Balance -150 130 Weight 57.833 kg Intake: Oral 580 Output: Void Amount 150 Urine/Stool Mix 450 Other: Meal Dinner Percent of Meal Consumed 100% Feeding Ability Independent Urine Appearance Clear Urine Color Pale Urine Odor Normal Stool Size Moderate Stool Color Brown Stool Consistency Liquid Loose # Voids 1 Exam: General: Alert, Awake, No acute Distress Eyes/N/T: EOMI, Head/Neck: neck supple, CV: RRR, No murmurs, Pulm: mild rhonchi b/l, no wheezing Abd: soft, nontender, +BS x4 Ext: no clubbing/cyanosis/edema Neuro: Alert, no focal deficits, moves all extremities, Skin: warm/dry OBJ DATA Labs CBC & Chem 7: 11/23/21 05:18 11/25/21 05:09 Labs: Abnormal Lab Results 11/25/21 11/24/21 11/23/21 05:09 08:50 05:18 RBC Hct MCH MCHC MPV Lymph # (Auto) Band Neutrophils % D-Dimer Sodium Chloride Glucose 111 H 147 H Osmolality 257 L Calcium 8.5 L 8.4 L Phosphorus 2.3 L Lactate Dehydrogenase 264 H 240 H NT-Pro-B Natriuret Pep Total Protein 5.5 L Albumin 2.7 L 3.1 L Albumin/Globulin Ratio 0.9 L Procalcitonin 11/23/21 11/23/21 11/23/21 05:18 05:18 05:18 RBC 3.20 L Hct 31.7 L MCH 35.0 H MCHC MPV 11.4 H Lymph # (Auto) 1.41 L Band Neutrophils % D-Dimer Sodium 121 L Chloride 87 L Glucose 115 H Osmolality Calcium 7.7 L Phosphorus Lactate Dehydrogenase NT-Pro-B Natriuret Pep Total Protein Albumin Albumin/Globulin Ratio Procalcitonin 0.13 H 11/22/21 11/22/21 11/22/21 18:31 18:31 18:31 RBC Hct MCH MCHC MPV Lymph # (Auto) Band Neutrophils % D-Dimer 0.89 H Sodium 123 L Chloride 85 L Glucose 189 H Osmolality Calcium Phosphorus Lactate Dehydrogenase NT-Pro-B Natriuret Pep 1980.0 H Total Protein Albumin Albumin/Globulin Ratio Procalcitonin 11/22/21 18:31 RBC 3.38 L Hct 32.8 L MCH 36.1 H MCHC 37.2 H MPV 10.9 H Lymph # (Auto) Band Neutrophils % 11 H D-Dimer Sodium Chloride Glucose Osmolality Calcium Phosphorus Lactate Dehydrogenase NT-Pro-B Natriuret Pep Total Protein Albumin Albumin/Globulin Ratio Procalcitonin Meds: Medications Acetaminophen (Acetaminophen 325 Mg Tablet) 650 mg PO Q6HP PRN; Protocol PRN Reason: Per Pain Protocol/Fever > 101 Last Admin: 11/24/21 19:38 Dose: 650 mg Documented by: Albuterol/Ipratropium (Ipratropium/Albuterol 3 Ml Ampul.Neb) 3 ml NEB Q6HP PRN PRN Reason: Shortness Of Breath Amlodipine Besylate (Amlodipine 10 Mg Tablet) 10 mg PO QDAY [facility] [place] Last Admin: 11/24/21 08:06 Dose: 10 mg Documented by: Aspirin (Aspirin 81 Mg Tab.Chew) 81 mg PO DAILY [facility] [place] Last Admin: 11/24/21 08:06 Dose: 81 mg Documented by: Ceftriaxone Sodium (Ceftriaxone 1 Gm Vial) 1 gm IV Q24H [facility] [place] Last Admin: 11/24/21 08:58 Dose: 1 gm Documented by: Docusate Sodium (Docusate Sodium 100 Mg Capsule) 100 mg PO BID [facility] [place] Last Admin: 11/24/21 20:42 Dose: Not Given Documented by: Enoxaparin Sodium (Enoxaparin 40 Mg/0.4 Ml Syringe) 40 mg SQ DAILY [facility] [place] Last Admin: 11/24/21 08:06 Dose: 40 mg Documented by: Guaifenesin/Codeine Phosphate (Guaifenesin/Codeine 10 Ml Udc) 5 ml PO Q4HP PRN PRN Reason: Cough Last Admin: 11/25/21 05:27 Dose: 5 ml Documented by: Azithromycin 250 mg/ Dextrose 250 mls @ 250 mls/hr IV Q24H [facility] [place] Stop: 11/26/21 12:59 Nitroglycerin (Nitroglycerin 0.4 Mg Tab.Subl) 0.4 mg SL Q5M PRN PRN Reason: chest pain Ondansetron HCl (Ondansetron 4 Mg/2 Ml Vial) 4 mg IV Q6HP PRN PRN Reason: Nausea And Vomiting Latanoprost (Pf) 7.5 (Ml Drops) 1 dose BOTH EYES HS [facility] [place] Last Admin: 11/24/21 21:54 Dose: 1 dose Documented by: Brimonidine-Timolol (5 Ml Drops) 1 dose BOTH EYES Q12@0700,1900 [facility] [place] Last Admin: 11/24/21 19:19 Dose: 1 dose Documented by: Senna (Sennosides 1 Tablet) 2 tab PO HS [facility] [place] Last Admin: 11/24/21 20:42 Dose: Not Given Documented by: Sodium Chloride (0.9 % Sodium Chloride 10 Ml Syringe) 10 ml IV Q8 [facility] [place] Last Admin: 11/25/21 05:28 Dose: 10 ml Documented by: A/P Narrative A/P Narrative: A: *PNA: -covid neg *Metabolic encephalopathy: *Acute hypoxemic respiratory failure: -on 1-2L NC *Generalized weakness: *Hyponatremia: *HTN: P: -Antibiotics -wean O2 -follow-up sodium -Continue home Norvasc/ASA -PT/OT -ppx: Lovenox Time Spent With Patient Time: Total time spent is greater than 50% in coordination of care (as documented) at patient's floor/unit and/or counseling patient: QUALITY Stroke Symptom Onset Unknown: No VTE Deep Vein Thrombosis/Pulmonary Embolism Present on Admission: No
[2021-11-25] MEDS: ENOXAPARIN 40 MG/0.4 ML SYRINGE SQ SCH (09:46)
[2021-11-25] MEDS: ASPIRIN 81 MG TAB.CHEW PO SCH (09:46)
[2021-11-25] MEDS: amLODIPine 10 MG TABLET PO SCH (09:46)
[2021-11-25] MEDS: TIMOLOL BOTH EYES SCH (09:48)
[2021-11-25] MEDS: BRIMONIDINE BOTH EYES SCH (09:48)
[2021-11-25] MEDS: DOCUSATE SODIUM 100 MG CAPSULE PO SCH (09:50)
[2021-11-25] MEDS: cefTRIAXone 1 GM VIAL IV SCH (09:54)
--- NOTE | 2021-11-25 09:57 | Discharge Summary ---
Discharge Provider Provider Patient information: Note initiated : 11/25/21 at 9:53 am Service Date, if different from initiated Date: [] Patient: Danielle Duncan 89 y/o F admitted on 11/22/21 for SOB/cough x 1 week. Chief Complaint: [] Date of admission: 11/22/21 21:42 Discharge date: 11/25/21 Primary care physician: Ana Mehta PA-C Consults: 11/22/21 Consult to Physician [CONS] Stat Comment: Consulting Provider: Gabe Cortez Reason For Exam: Physician to Consult Discharge Meds Discharge Medications Home Medications aspirin 81 mg chewable tablet 81 mg PO DAILY 08/07/18 [History Confirmed 11/23/21 Last Taken 08/06/18] calcium carbonate 500 mg calcium (1,250 mg) tablet 1,200 mg PO DAILY 08/07/18 [History Confirmed 11/23/21 Last Taken 08/06/18] cholecalciferol (vitamin D3) 50 mcg (2,000 unit) capsule 2,000 unit PO DAILY 08/07/18 [History Confirmed 11/23/21 Last Taken 08/06/18] latanoprost (PF) 0.005 % eye drops 7.5 ml OP DAILY 08/07/18 [History Confirmed 11/23/21 Last Taken 08/06/18] nitroglycerin 0.4 mg sublingual tablet 0.4 mg SUBLINGUAL Q5M PRN #30 tab 11/25/19 [Rx Confirmed 11/23/21 Last Taken Unknown] amlodipine 10 mg tablet 10 mg PO QDAY #90 tab 03/19/21 [Rx Confirmed 11/23/21 Last Taken Unknown] ascorbic acid (vitamin C) 1 tab PO QDAY 06/29/21 [History Confirmed 11/23/21 Last Taken Unknown] timolol maleate 0.5 % eye drops 1 drp OPHTHALMIC (EYE) BID 11/24/21 [History Confirmed 11/24/21 Last Taken Unknown] cefpodoxime 200 mg tablet 200 mg PO BID #5 tab 11/25/21 [Rx Last Taken Unknown] lisinopril 10 mg tablet 10 mg PO DAILY #30 tab 11/25/21 [Rx Last Taken Unknown] COURSE Hospital Course Hospital course: Ms. Duncan is a 89 year old F with a past medical history significant for hypertension, and glaucoma who presents to the hospital with worsening shortness of breath, and malaise. The patient was quite anxious on arrival, and coughing vigorously. She was found to be hypoxemic and placed on supplemental O2. She was given a dose of Ativan and she was quite sedated when I went to evaluate her. History was obtained secondhand from chart review and from the niece who was present at the bedside. She states that her aunt began to feel unwell last . They would call him to check and and she would state that she is feeling well. Today she decided to come in and check on her when she noticed that she was looking quite unwell. She decided to bring her to the ER for further management and evaluation. On arrival, she was tachypneic and very weak. The hospitalist service was asked admit the patient for further management evaluation of acute hypoxemic respiratory failure. 11/23 The patient was resting comfortably in bed and had no active complaints or concerns. The patient's respiratory viral panel is negative. SARS-CoV2 is pending. Continue tx for CAP as above. 11/24 Patient does occasionally admit to food going down the wrong pipe. Patient does have cough and shortness of breath with slow improvement. Patient getting a barium swallow with speech today. Awaiting chemistry for follow-up labs especially sodium. 11/25 Patient doing well. On room air. Passed barium swallow with speech. Blood pressure seems to be chronically elevated and will just blood pressure medication.. A/P Narrative: A: *PNA: *Metabolic encephalopathy: *Acute hypoxemic respiratory failure: *Generalized weakness: *Hyponatremia: *HTN: uncontrolled P: -Antibiotics -Continue home Norvasc -Start Lisinopril, and monitor blood pressure twice daily at home and bring log to PCP Discharge diagnosis: Pneumonia encephalopathy acute hypoxic respite failure generalized weakness Time Spent with Patient Time attestation: Total time spent providing and/or coordinating discharge services: Time spent: Greater than 30 minutes EXAM Constitutional Vitals: Temp Pulse Resp BP Pulse Ox 96.8 F L 74 22 185/76 92 11/25/21 07:39 11/25/21 07:39 11/25/21 07:39 11/25/21 07:39 11/25/21 07:39 Discharge Data Data Completed and Pending Labs on day of discharge: Labs from last 24 hours 11/25/21 11/24/21 05:09 08:50 Sodium 135 135 Potassium 4.0 3.8 Chloride 98 99 Carbon Dioxide 28 25 Anion Gap 9.0 11.0 BUN 16 9 Creatinine 0.8 0.7 GFR Calculation 65 77 Glucose 111 H 147 H Uric Acid 4.6 4.3 Calcium 8.5 L 8.4 L Phosphorus 3.0 2.3 L Magnesium 2.2 2.2 Total Bilirubin 0.2 0.4 Direct Bilirubin < 0.2 < 0.2 GGT 9 8 AST 15 21 ALT 13 17 Alkaline Phosphatase 82 76 Lactate Dehydrogenase 264 H 240 H Total Protein 5.5 L 6.5 Albumin 2.7 L 3.1 L Globulin 2.8 3.4 Albumin/Globulin Ratio 1.0 0.9 L Triglycerides 59 80 Discharge Plan Patient/Caregiver Discharge Instructions Activity: increase activity as tolerated Diet: Regular Diet Prescriptions: New lisinopril 10 mg Tablet 10 mg PO DAILY Qty: 30 0RF cefpodoxime 200 mg tablet 200 mg PO BID Qty: 5 0RF Rx Instructions: must administer with a meal/food Continued nitroglycerin 0.4 mg tablet, sublingual 0.4 mg SUBLINGUAL Q5M PRN (Reason: chest pain) Qty: 30 0RF amlodipine 10 mg tablet 10 mg PO QDAY Qty: 90 2RF ascorbic acid (vitamin C) 1 tab PO QDAY 0RF calcium carbonate 500 MG tablet 1,200 mg PO DAILY 0RF aspirin 81 MG tablet,chewable 81 mg PO DAILY 0RF cholecalciferol (vitamin D3) 2,000 UNIT capsule 2,000 unit PO DAILY 0RF latanoprost (PF) 7.5 ML drops 7.5 ml OP DAILY 0RF timolol maleate 0.5 % drops 1 drp OPHTHALMIC (EYE) BID 0RF Follow Up Plan Follow up with: Ana Mehta PA-C [Primary Care Provider] - Patient Disposition: Home Health Service Prognosis: Fair Overall status at discharge: patient is progressing back to baseline Discharge Orders: Discharge Order (Routine); Ordered 11/25/21 Ordered By: Royce Handley [facility] Deep Vein Thrombosis/Pulmonary Embolism Present on Admission: No
[2021-11-25] MEDS ORDERED: LISINOPRIL 10 MG TABLET PO SCH (10:00)
--- NOTE | 2021-11-25 11:35 | EKG ---
Located Within [facility] Test Date: 2021-11-22 Pat Name: Danielle Duncan Department: ED Room: Gender: Female [employer]: AW : [id number] Requested By: Joel Anglin Order Number: [id number] Reading MD: Amarjit Grove M.D. Measurements Intervals [place] Rate: 75 P: 64 NE: 136 QRS: 24 QRSD: 79 T: 12 QT: 390 QTc: 436 Interpretive Statements Sinus rhythm Multiple premature complexes, vent & supraven Nonspecific repol abnormality, diffuse leads Electronically Signed On 11-25-2021 11:35:03 PDT by Amarjit Grove M.D. /[id number]
[2021-11-25] MEDS ORDERED: AZITHROMYCIN 250 MG in DEXTROSE 5% IN WATER 250 ML IV SCH (12:00)
== END 2021-11-25 17:35 | disposition home health service (06) | DRG 193 ==
LOC: ED 17:55 → MEDSUR 21:42
PROVIDERS: ADMIT Student in an Organized Health Care Education/Training Program; ATTEND Internal Medicine